=== PATIENT | female | born 1995 | race Caucasian/White ===

== ENCOUNTER 2018-09-01 10:06 | Emergency (ER) | payer BC ==
[~2018-09-01] VITALS: Ht 175.3 cm; Wt 58.2 kg
[2018-09-01 10:18] VITALS: BP 122/89; TEMP 98
[2018-09-01 10:44] LABS: COLLECTION METHOD CLEAN CATCH
[2018-09-01 11:07] LABS: MUCOUS Present /lpf; PH 5 (5-8); SQUAMOUS EPITHELIAL 0-2 /hpf; URINE APPEARANCE Clear; URINE BACTERIA Rare /hpf; URINE BILIRUBIN Negative (NEGATIVE); URINE BLOOD 1+ (NEGATIVE); URINE CALCIUM OXALATE CRYSTAL Present /hpf; URINE COLOR Yellow; URINE GLUCOSE Negative (NEGATIVE); URINE KETONE Negative (NEGATIVE); URINE LEUKOCYTE ESTERASE Negative (NEGATIVE); URINE NITRATE Negative (NEGATIVE); URINE PROTEIN(semi-quant) Negative (NEGATIVE); URINE RBC 20-50 /hpf
[2018-09-01 11:29] LABS: BASO % 0.7 % (0.0-2.0); EOS # 0.1 (0.0-0.7); EOS % 1.4 % (0-4.0); GRAN # 3.1 (1.4-6.5); GRAN % 55.1 % (42.2-75.2); HEMATOCRIT 38.3 % (35.0-45.0); HEMOGLOBIN 13.2 g/dl (12.0-15.0); LYMPH # 1.9 (1.2-3.4); LYMPH % 34.7 % (20.0-51.0); MEAN CELL VOLUME 93 fl (80.0-95.0); MEAN CORPUSCULAR HEMOGLOBIN 32 pg (26.0-32.0); MEAN CORPUSCULAR HGB CONC 35 g/dl (33.0-37.0); MEAN PLATELET VOLUME 9.9 fl (7.4-10.4); MONO # 0.4 (0.1-0.6); MONO % 7.7 % (1.7-9.3); PLATELET COUNT 321 K/mm3 (130-400); RED BLOOD COUNT 4.13 M/mm3 (4.10-5.30); REDCELL DISTRIBUTION WIDTH-CV 11.7 % (11.5-14.5)
[2018-09-01] MEDS ORDERED: FLOMAX 0.40.4 MG/CAP PO (11:36)
[2018-09-01] MEDS ORDERED: OMNICEF 300MG300 MG PO (11:36)
[2018-09-01] MEDS ORDERED: PERCOCET 325 MG1 TA2 PO (11:36)
[2018-09-01 11:39] LABS: CALCIUM 11.1 mg/dL (8.4-10.2); CREATININE, serum 0.64 mg/dL (0.52-1.25); POTASSIUM 3.8 mmol/L (3.4-5.0)
[2018-09-01 12:39] VITALS: PULSE 86
== END 2018-09-01 12:39 | disposition home or self-care (01) ==
LOC: COL.ER 10:06
PROVIDERS: Emergency Medicine
DX: N20.0 Calculus of kidney (principal)
CPT/HCPCS: A4216; J0696; J1885; J2270; J2405; J7030